=== PATIENT | male | born 1935 | race Two or more races ===

== ENCOUNTER 2017-09-03 06:00 | Day surgery (SDC) | payer OTHER | END 2017-09-03 13:20 | disposition home or self-care (01) | LOC: AMB-ENDOS 06:00 | DX: K29.40 Chronic atrophic gastritis without bleeding (principal); K31.89 Other diseases of stomach and duodenum; Z12.11 Encounter for screening for malignant neoplasm of colon; K64.1 Second degree hemorrhoids; K44.9 Diaphragmatic hernia without obstruction or gangrene ==

== ENCOUNTER 2020-11-22 06:05 | Day surgery (SDC) | payer OTHER | END 2020-11-22 10:40 | disposition home or self-care (01) | LOC: AMB-ENDOS 06:05 | PROVIDERS: ATTEND Colon & Rectal Surgery | DX: D13.1 Benign neoplasm of stomach (principal); K57.30 Diverticulosis of large intestine without perforation or abscess without bleeding ==